=== PATIENT | male | born 1980 | race Caucasian/White ===

== ENCOUNTER 2019-08-17 17:53 | Emergency (ER) | payer SELFPAY ==
[~2019-08-17] VITALS: Ht 161 cm; Wt 111.4 kg
[2019-08-17 18:09] VITALS: BP 126/75; TEMP 97.2
[2019-08-17 19:05] LABS: COLLECTION METHOD CLEAN CATCH
[2019-08-17 19:10] LABS: MUCOUS Present /lpf; PH 5 (5-8); SQUAMOUS EPITHELIAL 0-2 /hpf; URINE APPEARANCE Clear; URINE BACTERIA None Seen /hpf; URINE BILIRUBIN Negative (NEGATIVE); URINE BLOOD Negative (NEGATIVE); URINE COLOR Yellow; URINE GLUCOSE Negative (NEGATIVE); URINE KETONE Negative (NEGATIVE); URINE LEUKOCYTE ESTERASE Negative (NEGATIVE); URINE NITRATE Negative (NEGATIVE); URINE PROTEIN(semi-quant) Negative (NEGATIVE); URINE RBC 0-2 /hpf; URINE UROBILINOGEN Negative (NEGATIVE)
[2019-08-17] MEDS ORDERED: CIPRO 500MG TA500 MG PO (19:59)
[2019-08-17 20:26] VITALS: PULSE 79
== END 2019-08-17 20:26 | disposition home or self-care (01) ==
LOC: COL.ER 17:53
PROVIDERS: Emergency Medicine
DX: N43.3 Hydrocele, unspecified (principal)

== ENCOUNTER → 2019-10-29 | Outpatient (CLI) | payer SELFPAY ==
[~2019-10-29] MED LIST: CIPRO 500MG TA500 MG PO
== END ==
LOC: SDCO 09-16 07:30 → COL.LAB 08:00 → SDCO 11-04 07:30 → EDSTATUS 11-04 07:30 → SDCO 11-04 08:00
DX: U07.1 COVID-19 (principal); N43.0 Encysted hydrocele

== ENCOUNTER 2020-01-20 05:33 | Day surgery (SDC) | payer SELFPAY ==
[2020-01-20] VITALS (8 sets, daily range): BP systolic 97–137; BP diastolic 53–95; PULSE 64–76; TEMP 98.2–98.5
[~2020-01-20] VITALS: Ht 160 cm; Wt 113.9 kg
--- NOTE | 2020-01-20 09:15 | NUR ---
Patient returns to room 7 per cart from PACU accompanied by Shagufta BRYAN and agricultural aircraft pilot. IV fluids infusing and site is free of redness. Temp 98.2 and room air sats 95%. Scrotal support and bulky kerlix dressing dry with scrotal on. Siderails up x2 and call light in reach. Allowed to rest. Call light in reach.
--- NOTE | 2020-01-20 09:15 | NUR ---
The patient arrived back to [facility] from the recovery room at this time. The patient appears to be resting comfortably on the cart and denies any pain or nausea at this time. The patient agrees to try some ice water at this time. Post operative vital signs were started at this time. The patient has a buddy drain in place to the incision site with fluffed gauze and a scroctal support in place. The patient's friend and despatching and receiving clerk ,Lewis, remains at his bedside. Call light is within reach. Will continue to monitor the patient.
--- NOTE | 2020-01-20 09:30 | NUR ---
The patient's vital signs appear stable at this time. The patient was given some apple juice to try at this time. The patient denies any pain or nausea at this time. Will continue to monitor the patient.
--- NOTE | 2020-01-20 09:45 | NUR ---
The patient appears to be toleraing the juice well and denies wanting anything further to eat or drink at this time. Will continue to monitor the patient.
--- NOTE | 2020-01-20 10:00 | NUR ---
The patient appears to be resting quietly with his eyes closed at this time. Respirations even and unlabored. Will continue to monitor the patient.
--- NOTE | 2020-01-20 10:30 | NUR ---
The patient reports feeling the urge to void and was assisted to the bathroom with the stand by assistance of one nurse and appeared to tolerate the activity well. The patient voided without difficulty.
--- NOTE | 2020-01-20 11:00 | NUR ---
Discharge instructions were reviewed with the patient and his interperter at this time. Questions were answered at this time. The patient's IV to his right hand was removed and a pressure dressing was applied to the site. The nurse instructed the patient to get dressed and notify the staff when he is ready to be escorted out.
--- NOTE | 2020-01-20 11:15 | NUR ---
The patient was escorted out via wheelchair to a private vehicle by IRVIN Najera. The patient's friend and wireworker, Lewis, is present to drive him home. The patient's belongings and discharge paperwork were sent him.
== END 2020-01-20 11:15 | disposition home or self-care (01) ==
LOC: SDCO 05:33
DX: N43.3 Hydrocele, unspecified (principal); Z80.42 Family history of malignant neoplasm of prostate; Z86.19 Personal history of other infectious and parasitic diseases
CPT/HCPCS: J0360; J0690; J1100; J1885; J2405; J2704; J3010; J7120